=== PATIENT | male | born 1970 | race Two or more races ===

== ENCOUNTER 2023-07-18 14:13 | Emergency (ER) | payer OTHER ==
[2023-07-18 14:23] VITALS: PULSE 90; RESP 20; TEMP 98.2
[2023-07-18] MEDS ORDERED: MAG HYDROX/AL HYDROX/SIMETH 30 ML UNIT-DOSE CUP ONE (15:20)
[2023-07-18] MEDS ORDERED: ACETAMINOPHEN INJECTION 100 ML IVPB ONE (15:20)
[2023-07-18] MEDS ORDERED: PANTOPRAZOLE SODIUM 40 MG VIAL ONE (15:20)
[2023-07-18 15:29] LABS: BASO % 0.5 % (0-2.0); EOS % 0.7 % (0-4.5); HEMATOCRIT 43.4 % (35.4-49); LYMPH % 14.1 % (8-40); MCHC 34.5 g/dl (32.0-35.9); MEAN CELL VOLUME 89.9 fl (80-96); MEAN PLT VOLUME 8.7 fl (7.5-11.1); MONO % 8.8 % (3.8-10.2); NEUT % 75.9 % (42.8-82.8); PLATELET COUNT 159 10^3/uL (134-434); RBC 4.83 M/mm3 (4.00-5.60); RDW 13.6 % (11.9-15.9); WHITE BLOOD COUNT 3.6 K/mm3 (4.0-10.0)
[2023-07-18 15:37] LABS: INR 0.99 (0.83-1.09); PROTHROMBIN TIME (PATIENT) 11.2 SEC (9.7-13.0)
[2023-07-18 15:39] LABS: ACTIVATED PTT 35.7 SECONDS (25.2-36.5)
[2023-07-18 15:50] LABS: POTASSIUM 3.8 mmol/L (3.5-5.1)
[2023-07-18 15:53] LABS: ALBUMIN 4.3 g/dl (3.4-5.0); BLOOD UREA NITROGEN 12.1 mg/dL (7-18); CALCIUM 8.8 mg/dL (8.5-10.1); MAGNESIUM 1.9 mg/dL (1.8-2.4)
[2023-07-18 15:56] LABS: BILIRUBIN,TOTAL 0.5 mg/dL (0.2-1); CREATININE 0.6 mg/dL (0.55-1.3)
[2023-07-18 15:58] LABS: TOT PROT 7.8 g/dl (6.4-8.2)
[2023-07-18] MEDS: MAG HYDROX/AL HYDROX/SIMETH 30 ML UNIT-DOSE CUP PO ONE (16:04)
[2023-07-18] MEDS: SODIUM CHLORIDE 0.9% 500 ML INFUS.BAG IV ONE (16:04)
[2023-07-18] MEDS: ACETAMINOPHEN 1000 MG/100 ML BAG IVPB ONE (16:04)
[2023-07-18] MEDS: PANTOPRAZOLE SODIUM 40 MG VIAL IVPUSH ONE (16:05)
[2023-07-18] MEDS: FAMOTIDINE 20 MG/50 ML IVPB 20 MG/50 ML MG IVPB ONE (16:10)
[2023-07-18 19:11] VITALS: BP 155/78
== END 2023-07-18 19:12 | disposition home or self-care (01) ==
LOC: JER 14:13
PROC: 3E033NZ Introduction of Analgesics, Hypnotics, Sedatives into Peripheral Vein, Percutaneous Approach (ICD-10-PCS; principal; 2023-07-18)
PROC: 3E033GC Introduction of Other Therapeutic Substance into Peripheral Vein, Percutaneous Approach (ICD-10-PCS; 2023-07-18)
DX: M54.6 Pain in thoracic spine (principal); R16.0 Hepatomegaly, not elsewhere classified; R10.13 Epigastric pain; R74.01 Elevation of levels of liver transaminase levels
CPT/HCPCS: 36415; 71045-TC-FY; 74177-TC; 76705-TC; 80053; 83605; 83690; 83735; 84484; 85025; 85610; 85730; 93005; 93010; 99285-25; J0131; Q9967